=== PATIENT | female | born 1985 | race Caucasian/White ===

== ENCOUNTER 2021-10-01 17:15 | Emergency (ER) | payer OTHER, SELFPAY ==
[2021-10-01 17:23] VITALS: BP 128/73; PULSE 70; RESP 20; TEMP 36.6; O2SAT 100
--- NOTE | 2021-10-01 18:38 | DI.CT.S_ITS ---
PROCEDURE: CT ABDOMEN PELVIS W CON INDICATIONS: LLQ pain, bloody stool TECHNIQUE: After the administration of intravenous contrast, axial sections acquired from the lung bases to the pubic symphysis. Coronal and sagittal reformats were performed. For radiation dose reduction, the following was used: automated exposure control, adjustment of mA and/or kV according to patient size. COMPARISON: None. FINDINGS: Image quality: Excellent. Lung bases: Lung bases are clear. Heart size is normal. Solid organs: Liver: The liver has no mass or intrahepatic biliary ductal dilatation. The portal vein and hepatic veins are patent. Biliary: The gallbladder has no gallstones, pericholecystic fluid, gallbladder wall thickening, or surrounding inflammatory change. Pancreas: The pancreas has no mass or ductal dilatation. There is no surrounding inflammation. Spleen: Normal size. There are no masses. Adrenals: No hypertrophy or nodules. Kidneys: No obstructive calculus or hydronephrosis. No solid mass. No cystic mass. Peritoneum and bowel: The distal esophagus and stomach are normal. The small bowel has a normal caliber and appearance. The terminal ileum is normal. The large bowel has a normal caliber and appearance. The appendix is not definitively visualized and therefore acute appendicitis cannot be excluded; however there are no secondary findings to suggest acute appendicitis. No free fluid or air. Nodes and vessels: No retroperitoneal or mesenteric adenopathy by size criteria. Aorta and inferior vena cava are normal in size. Miscellaneous: No abdominal wall mass or hernia. PELVIS: Genitourinary: The bladder has no wall thickening or mass. No bladder calcifications. Bones: No suspicious bony lesions. No vertebral body compression fractures. IMPRESSION: No acute abdominal or pelvic abnormality. Dictated by: Ariel Norris M.D. on 10/01/2021 at 19:52 Approved by: Ariel Norris M.D. on 10/01/2021 at 19:56
[2021-10-01 18:43] LABS: Add Manual Diff / Slide Review NO; Basophils Absolute Auto 0 /uL (0-100); Basophils Percent Auto 0.4 % (0-2); Eosinophils Absolute Auto 0 /uL (0-450); Eosinophils Percent Auto 0.4 % (2-4); Hematocrit 39.2 % (36-46); Hemoglobin 13.7 g/dL (12.0-16.0); Lymphocytes Absolute Auto 1600 /uL (1100-4500); Lymphocytes Percent Auto 18.5 % (25-40); Mean Corpuscular Volume 85.7 fL (80-100); Monocytes Absolute Auto 700 /uL (0-900); Monocytes Percent Auto 7.7 % (3-14); Neutrophils Absolute Auto 6400 /uL (1500-7000); Platelet Count 209 X10^3/uL (150-400); Red Blood Cell Count 4.58 X10^6/uL (4.0-5.2); Red Cell Distribution Width 12.7 % (11.6-14.8); White Blood Cell Count 8.7 X10^3/uL (4.5-11.0)
[2021-10-01 18:50] LABS: Lactate (Lactic Acid) 1.1 mmol/L (0.7-2.1)
--- NOTE | 2021-10-01 19:29 | ED.GIBLEED ---
HPI - GI Bleed <Loreto Reyes PA-C - Last Filed: 10/01/21 20:37> General Chief complaint: GI Bleed Stated complaint: BLOOD IN STOOL Time Seen by Provider: 10/01/21 17:46 Source: patient Mode of arrival: Ambulatory History of Present Illness HPI Narrative: 36-year-old female with past medical history migraines presents to the ED with 1 day of rectal bleed. Patient states that she takes magnesium for her migraines, which causes her to have loose stools on a chronic basis. Patient states that her loose stools have been almost like a diarrhea over the last 3-4 days, she feels like her anus feels irritated from constant wiping. Patient states she saw some blood this morning when she wiped, then felt the urge to have a bowel movement, noted that her bowel movement consisted of bright red blood and no stool. Patient presented to the ED right after the 1 episode of bleeding. Patient denies fever, chills, chest pain, shortness of breath, nausea, vomiting, dysuria, lightheadedness, dizziness, syncope. Patient does endorse some left-sided abdominal cramping. Patient denies history of GI bleeds, hemorrhoids. Patient denies NSAID use. Related Data Previous Rx's Medication Instructions Recorded ondansetron 4 mg disintegrating 4 mg PO Q6-8H PRN #14 tab 03/04/21 tablet Allergies Allergy/AdvReac Type Severity Reaction Status Date / Time tramadol AdvReac Severe causes Verified 03/04/21 10:36 panic attack acetaminophen [From Vicodin] AdvReac Unknown Verified 03/04/21 10:36 hydrocodone [From Vicodin] AdvReac Unknown Verified 03/04/21 10:36 Review of Systems <Loreto Reyes PA-C - Last Filed: 10/01/21 20:37> Review of Systems ROS Unobtainable: All systems reviewed & are unremarkable except as noted in HPI and below Constitutional Constitutional: Denies chills, Denies fatigue, Denies fever(s), Denies frequent falls, Denies lethargy and Denies weakness Eyes Eyes: Denies change in vision, Denies eye discharge, Denies irritation and Denies loss of vision ENT Ears, Nose, Mouth, and Throat: Denies change in voice, Denies dizziness, Denies neck pain, Denies sore throat and Denies throat swelling Cardiovascular Cardiovascular: Denies chest pain, Denies irregular heart rhythm, Denies lightheadedness, Denies palpitations, Denies dyspnea, Denies dyspnea on exertion and Denies orthopnea Respiratory Respiratory: Denies cough, Denies dyspnea, Denies dyspnea on exertion and Denies wheezing Gastrointestinal Gastrointestinal: Denies abdominal pain, Reports hematochezia, Denies change in bowel habits, Reports cramping, Denies diarrhea, Denies nausea and Denies vomiting Genitourinary Genitourinary: Denies hematuria, Denies flank pain, Denies urinary incontinence and Denies urinary urgency Musculoskeletal Musculoskeletal: Denies back pain, Denies muscle weakness, Denies neck pain, Denies numbness and Denies tingling Integumentary/Breasts Skin/Breast: Denies pruritus, Denies erythema, Denies rash and Denies wounds Neurologic Neurologic: Denies behavioral changes, Denies confusion, Denies dizziness, Denies frequent falls, Denies loss of vision, Denies numbness, Denies tingling and Denies weakness Psychiatric Psychiatric: Denies anxiety, Denies behavioral changes, Denies confusion, Denies depression, Denies homicidal ideation and Denies suicidal ideation Endocrine Endocrine: Denies fatigue, Denies flushing and Denies palpitations Hematologic/Lymphatic Hematologic/Lymphatic: Denies easy bruising Allergic/Immunologic Allergic/Immunologic: Denies urticaria, Denies throat swelling and Denies wheezing Patient History <Loreto Reyes PA-C - Last Filed: 10/01/21 20:37> Social History Smoking Status: Former smoker Smoking Status: Former smoker Exam <Loreto Reyes PA-C - Last Filed: 10/01/21 20:37> Narrative Exam Narrative: Const General:?cooperative, healthy appearing and comfortable [facility] Head:?normal to inspection Ears:?hearing grossly normal bilaterally Nose:?external nose normal Face and sinus:?normal facial exam and sinuses nontender Mouth:?oral mucosae normal Throat:?posterior oropharynx normal Eyes General:?appearance normal, both eyes and all related structures Neck Neck:?normal visual inspection and no lymphadenopathy noted Resp Effort & Inspection:?normal respiratory effort Auscultation:?clear to auscultation bilaterally Cardio Rate:?regular rate Rhythm:?regular rhythm GI Abdomen is soft, nondistended. Tender to palpation in the left lower quadrant. No CVA tenderness. No external hemorrhoids visualized on exam. Neuro General:?patient alert, patient awake and patient oriented x3 Initial Vital Signs Initial Vital Signs: Vital Signs Temperature 97.9 F 10/01/21 17:23 Pulse Rate 70 10/01/21 17:23 Respiratory Rate 20 10/01/21 17:23 Blood Pressure 128/73 10/01/21 17:23 Pulse Oximetry 100 10/01/21 17:23 <Deborah Oquendo MD - Last Filed: 10/02/21 06:18> Initial Vital Signs Initial Vital Signs: Vital Signs Temperature 97.9 F 10/01/21 17:23 Pulse Rate 70 10/01/21 17:23 Respiratory Rate 20 10/01/21 17:23 Blood Pressure 128/73 10/01/21 17:23 Pulse Oximetry 100 10/01/21 17:23 Course <KAR Polk Last Filed: 10/01/21 20:37> Orders Ordered: ED Orders 10/01/21 18:38 CT abdomen pelvis w con Stat CBC Auto Diff [Complete Blood Count AUTO DIFF] Stat CMP [Comprehensive Metabolic Panel] Stat Lactate (Lactic Acid) Stat Lipase Stat Vital Signs Vital signs: Vital Signs - 8 hr 10/01/21 17:23 10/01/21 19:33 Temperature 97.9 F Pulse Rate 70 62 Respiratory Rate 20 18 Blood Pressure 128/73 113/66 Pulse Oximetry 100 100 <Deborah Oquendo MD - Last Filed: 10/02/21 06:18> Orders Ordered: ED Orders 10/01/21 18:38 CT abdomen pelvis w con Stat CBC Auto Diff [Complete Blood Count AUTO DIFF] Stat CMP [Comprehensive Metabolic Panel] Stat Lactate (Lactic Acid) Stat Lipase Stat Vital Signs Vital signs: Vital Signs - 8 hr 10/01/21 17:23 10/01/21 19:33 Temperature 97.9 F Pulse Rate 70 62 Respiratory Rate 20 18 Blood Pressure 128/73 113/66 Pulse Oximetry 100 100 MDM - GI Bleed <KAR Polk Last Filed: 10/01/21 20:37> Lab Data Lab results narrative: Labs within normal limits Result diagrams: 10/01/21 17:40 10/01/21 19:04 Labs: Lab Results 10/01/21 10/01/21 10/01/21 Range/Units 17:40 17:40 19:04 WBC 8.7 (4.5-11.0) X10^3/uL RBC 4.58 (4.0-5.2) X10^6/uL Hgb 13.7 (12.0-16.0) g/dL Hct 39.2 (36-46) % MCV 85.7 (80-100) fL MCH 30.0 (26-34) PG MCHC 35.0 (30-36) % RDW 12.7 (11.6-14.8) % Plt Count 209 (150-400) X10^3/uL Neut % (Auto) 73.0 (50-75) % Lymph % (Auto) 18.5 L (25-40) % Winston % (Auto) 7.7 (3-14) % Eos % (Auto) 0.4 L (2-4) % Baso % (Auto) 0.4 (0-2) % Neut # (Auto) 6400 (7376-5263) /uL Lymph # (Auto) 1600 (6772-8955) /uL Winston # (Auto) 700 (0-900) /uL Eos # (Auto) 0 (0-450) /uL Baso # (Auto) 0 (0-100) /uL Sodium 141 (137-145) mmol/L Potassium 3.5 (3.4-5.1) mmol/L Chloride 112 H (98-107) mmol/L Carbon Dioxide 22 (22-32) mmol/L BUN 11 (7-17) mg/dL Creatinine 0.94 (0.52-1.04) mg/dL Estimated GFR > 60 (>60) mL/min BUN/Creatinine Ratio 11.7 (6-22) Glucose 114 H (70-100) mg/dL Lactate 1.1 (0.7-2.1) mmol/L Calcium 9.1 (8.4-10.2) mg/dL Total Bilirubin 0.4 (0.2-1.3) mg/dL AST 28 (14-36) IU/L ALT 17 (<35) IU/L Alkaline Phosphatase 60 (38-126) U/L Total Protein 6.5 (6.3-8.2) g/dL Albumin 4.0 (3.5-5.0) g/dL Globulin 2.5 (1.7-4.1) g/dL Albumin/Globulin Ratio 1.6 (1.0-2.8) Lipase 49 (23-300) U/L Imaging Data CT scan - abdomen/pelvis: Radiologist's Impression: PROCEDURE:? CT ABDOMEN PELVIS W CON ? INDICATIONS:? LLQ pain, bloody stool ? TECHNIQUE:? After the administration of intravenous contrast, axial sections acquired from the lung bases to the pubic symphysis.? Coronal and sagittal reformats were performed.? For radiation dose reduction, the following was used:? automated exposure control, adjustment of mA and/or kV according to patient size.? ? COMPARISON:? None. ? FINDINGS: Image quality:? Excellent.? ? Lung bases:? Lung bases are clear.? Heart size is normal. ? Solid organs:? Liver: The liver has no mass or intrahepatic biliary ductal dilatation. The portal vein and hepatic veins are patent. Biliary: The gallbladder has no gallstones, pericholecystic fluid, gallbladder wall thickening, or surrounding inflammatory change. Pancreas: The pancreas has no mass or ductal dilatation. There is no surrounding inflammation. Spleen: Normal size. There are no masses. Adrenals: No hypertrophy or nodules. Kidneys: No obstructive calculus or hydronephrosis.? No solid mass. No cystic mass. ? Peritoneum and bowel:? The distal esophagus and stomach are normal.? The small bowel has a normal caliber and appearance. The terminal ileum is normal. The large bowel has a normal caliber and appearance.? The appendix is not definitively visualized and therefore acute appendicitis cannot be excluded; however there are no secondary findings to suggest acute appendicitis.? No free fluid or air.? ? Nodes and vessels:? No retroperitoneal or mesenteric adenopathy by size criteria.? Aorta and inferior vena cava are normal in size.? ? Miscellaneous:? No abdominal wall mass or hernia. ? PELVIS:? Genitourinary:? The bladder has no wall thickening or mass. No bladder calcifications. ? Bones:? No suspicious bony lesions.? No vertebral body compression fractures.? ? IMPRESSION:? No acute abdominal or pelvic abnormality. ? ? Dictated by: Ariel Norris M.D. on 10/01/2021 at 19:52 ? ? Approved by: Ariel Norris M.D. on 10/01/2021 at 19:56 ? MDM Narrative Medical decision making narrative: 36-year-old female with past medical history migraines presents to the ED with 1 day of rectal bleed. Concern for diverticulitis versus internal hemorrhoids versus upper GI bleed versus anemia. Will obtain labs, CT abdomen pelvis. Will reassess. Labs within normal limits. H&H stable. CT abdomen pelvis without acute findings. Patient's symptoms likely due to internal hemorrhoids versus polyps. Recommend GI follow-up for further evaluation and treatment. ED return precautions discussed with patient. Patient verbalized understanding. <Deborah Oquendo MD - Last Filed: 10/02/21 06:18> Lab Data Labs: Lab Results 10/01/21 10/01/21 10/01/21 Range/Units 17:40 17:40 19:04 WBC 8.7 (4.5-11.0) X10^3/uL RBC 4.58 (4.0-5.2) X10^6/uL Hgb 13.7 (12.0-16.0) g/dL Hct 39.2 (36-46) % MCV 85.7 (80-100) fL MCH 30.0 (26-34) PG MCHC 35.0 (30-36) % RDW 12.7 (11.6-14.8) % Plt Count 209 (150-400) X10^3/uL Neut % (Auto) 73.0 (50-75) % Lymph % (Auto) 18.5 L (25-40) % Winston % (Auto) 7.7 (3-14) % Eos % (Auto) 0.4 L (2-4) % Baso % (Auto) 0.4 (0-2) % Neut # (Auto) 6400 (9909-1731) /uL Lymph # (Auto) 1600 (2425-8532) /uL Winston # (Auto) 700 (0-900) /uL Eos # (Auto) 0 (0-450) /uL Baso # (Auto) 0 (0-100) /uL Sodium 141 (137-145) mmol/L Potassium 3.5 (3.4-5.1) mmol/L Chloride 112 H (98-107) mmol/L Carbon Dioxide 22 (22-32) mmol/L BUN 11 (7-17) mg/dL Creatinine 0.94 (0.52-1.04) mg/dL Estimated GFR > 60 (>60) mL/min BUN/Creatinine Ratio 11.7 (6-22) Glucose 114 H (70-100) mg/dL Lactate 1.1 (0.7-2.1) mmol/L Calcium 9.1 (8.4-10.2) mg/dL Total Bilirubin 0.4 (0.2-1.3) mg/dL AST 28 (14-36) IU/L ALT 17 (<35) IU/L Alkaline Phosphatase 60 (38-126) U/L Total Protein 6.5 (6.3-8.2) g/dL Albumin 4.0 (3.5-5.0) g/dL Globulin 2.5 (1.7-4.1) g/dL Albumin/Globulin Ratio 1.6 (1.0-2.8) Lipase 49 (23-300) U/L Discharge Plan Departure Patient Disposition: Home Clinical Impression: Bright red rectal bleeding Instructions: Gastrointestinal Bleeding Activity Restrictions/Additional Instructions: You were evaluated today for rectal bleeding. Your labs, CT abdomen pelvis were normal. Your symptoms are likely due to internal hemorrhoids versus polyps. You will need to follow up with a gastrointestinal specialist for further evaluation and treatment. Return to the ED if you have continued rectal bleeding, shortness of breath, lightheadedness. Prescriptions: No Action ondansetron 4 mg tablet,disintegrating 4 mg PO Q6-8H PRN (Reason: nausea and vomiting) Qty: 14 0RF <Deborah Oquendo MD - Last Filed: 10/02/21 06:18> Cosign ED Attending Cosdelaneyature Attestation: I was immediately available in the department for consultation throughout this patient's visit. I agree with documentation as above. Deborah Oquendo MD
[2021-10-01 19:31] LABS: Alanine Aminotransferase 17 IU/L (<35); Albumin Globulin Ratio 1.6 (1.0-2.8); Alkaline Phosphatase 60 U/L (38-126); Aspartate Aminotransferase 28 IU/L (14-36); BUN Creatinine Ratio 11.7 (6-22); Bilirubin Total 0.4 mg/dL (0.2-1.3); Blood Urea Nitrogen 11 mg/dL (7-17); Calcium 9.1 mg/dL (8.4-10.2); Carbon Dioxide 22 mmol/L (22-32); Chloride 112 mmol/L (98-107); Estimated Glomerular Filt Rate > 60 mL/min (>60); Globulin 2.5 g/dL (1.7-4.1); Glucose 114 mg/dL (70-100); HEMOLYSIS < 15 (0-50); Lipase 49 U/L (23-300); Potassium 3.5 mmol/L (3.4-5.1); Sodium 141 mmol/L (137-145); Total Protein 6.5 g/dL (6.3-8.2)
[2021-10-01 19:33] VITALS: BP 113/66; PULSE 62; RESP 18; O2SAT 100
== END 2021-10-01 20:18 | disposition home or self-care (01) ==
PROVIDERS: Emergency Provider Student in an Organized Health Care Education/Training Program
DX: K62.5 Hemorrhage of anus and rectum (principal)
CPT/HCPCS: 36415; 74177; 80053; 83605; 83690; 85025; 99283; Q9967

== ENCOUNTER → 2022-03-16 09:57 | Outpatient (CLI) | payer OTHER, SELFPAY | PROVIDERS: Visit Provider Physician Assistant | DX: N89.8 Other specified noninflammatory disorders of vagina (principal) | CPT/HCPCS: 87210 ==

== ENCOUNTER → 2023-02-14 13:07 | Outpatient (CLI) | payer OTHER, SELFPAY ==
[2023-02-14 15:06] LABS: Urine N gonorrhoeae NOT DETECTED
[2023-02-14 16:02] LABS: Urine Chlamydia NOT DETECTED
== END ==
PROVIDERS: Visit Provider Registered Nurse
DX: N89.8 Other specified noninflammatory disorders of vagina (principal)
CPT/HCPCS: 87086; 87210; 87491; 87591

== ENCOUNTER → 2023-04-16 09:49 | Outpatient (CLI) | payer OTHER, SELFPAY ==
--- NOTE | 2023-04-16 09:52 | DI.CT.S_ITS ---
PROCEDURE: CT SINUS SCREEN WO CON INDICATIONS: Chronic pansinusitis TECHNIQUE: Noncontrast 3.0 mm axial images acquired from the frontal sinuses to the mid-sella, with coronal and sagittal reformats. For radiation dose reduction, the following was used: automated exposure control, adjustment of mA and/or kV according to patient size. COMPARISON: None. FINDINGS: Image quality: Excellent. Sinuses: Small mucous retention cysts versus polyps are present within the maxillary sinuses bilaterally. Remaining sinuses are clear. No fluid levels. Ostiomeatal Complexes: Ostiomeatal complexes are patent. There is mild narrowing on the right secondary to septal deviation. Miscellaneous: Visualized intra-orbital contents are normal. Left middle turbinate myah bullosa is present. There is a large right middle paradoxical turbinates. Slight hypertrophy of the inferior turbinates is present bilaterally. Rightward nasal septal deviation. IMPRESSION: Mucous retention cyst versus polyps in the maxillary sinuses. Otherwise, sinuses are clear. Rightward nasal septal deviation. Dictated by: Catalina Miranda M.D. on 04/16/2023 at 11:23 Approved by: Catalina Miranda M.D. on 04/16/2023 at 11:27
== END ==
PROVIDERS: Referring Provider Otolaryngology; Visit Provider Otolaryngology
DX: J32.4 Chronic pansinusitis (principal); R51.9 Headache, unspecified; R09.82 Postnasal drip; J34.2 Deviated nasal septum
CPT/HCPCS: 70486